=== PATIENT | female | born 1995 | race Caucasian/White ===

== ENCOUNTER 2022-07-08 15:52 | Outpatient (CLI) | payer BC, SELFPAY ==
[2022-07-08 18:26] LABS: Hepatitis B Surface Antigen* Negative (Negative)
[2022-07-08 18:36] LABS: HIV 1/2/P24 Combo Screen* Negative (Negative)
[2022-07-08 18:44] LABS: Hepatitis C Virus Antibody* Negative (Negative)
[2022-07-10 18:33] LABS: Rapid Plasma Reagin (RPR) Non Reactive (Non Reactive)
[2022-07-11 01:59] LABS: Rubella Antibody IgG 8.7 IU/mL; Varicella-Zoster Virus Ab, IgG 633.2 IV
[2022-07-12 09:25] LABS: Amphetamine Screen Urine Negative (Negative); Barbiturate Screen Urine Negative (Negative); Benzodiazepines Screen Urine Negative (Negative); Cannabinoid Screen Urine Negative (Negative); Cocaine Screen Urine Negative (Negative); Methadone Screen Urine Negative (Negative); Methamphetamines Screen Urine Negative (Negative); Opiate Screen Urine Negative (Negative); Oxycodone Screen Urine Negative (Negative); Phencyclidine Screen Urine Negative (Negative); Tricyclic Antidepressant Urine Negative (Negative)
== END 2022-07-08 15:53 | disposition home or self-care (01) ==
PROVIDERS: PCP Family Medicine; Visit Provider Advanced Practice Midwife
DX: Z34.91 Encounter for supervision of normal pregnancy, unspecified, first trimester (principal); Z3A.08 8 weeks gestation of pregnancy
CPT/HCPCS: 80306; 86592; 86703; 86762; 86787; 86803; 86850; 86900; 86901; 87086; 87340

== ENCOUNTER 2022-10-10 12:55 | Outpatient (CLI) | payer BC, SELFPAY ==
--- NOTE | 2022-10-10 13:00 | CRLHL7_ITS ---
For Patients: As a result of the Century Cures Act, medical imaging exams and procedure reports are released immediately into your electronic medical record. You may view this report before your referring provider. If you have questions, please contact your health care provider. INDICATION: Evaluate anatomy. COMPARISON: none TECHNIQUE: Real time grace scale imaging of the fetus was performed as well as color Doppler analysis of the umbilical vessels. FINDINGS: Sonographic imaging demonstrates a single living intrauterine gestation. Fetus demonstrates a regular cardiac rate of 138 beats per minute. Fetus has a variable position. The placenta lies posteriorly without evidence of placenta previa. The edge of the placenta is located 8.4 cm from the internal cervical os. Amniotic fluid volume appears normal. Single deepest vertical pocket: 4.6 cm. The cervix is closed and measures 4.6 cm in length. The composite ultrasound gestational age is calculated at 21 weeks 5 days with an estimated sonographic due date of 02/15/2023. The estimated weight is 457 grams which lies at the 44th %. The following biometric measurements were obtained: Biparietal diameter: 5.1 cm/21 weeks 4 days 37th% Head circumference: 19.3 cm/21 weeks 4 days 24th% Abdominal circumference: 16.9 cm/21 week 6 days 44th% Femur length: 3.7 cm/21 weeks 6 days 42nd% The HC/AC ratio measures: 1.14 range (1.06-1.24) On anatomic survey, there is a normal appearance of the cerebral ventricles, cavum septi pellucidi, cisterna magna and cerebellum. The nose, lips, and facial profile appear normal. The cervical, thoracic and lumbar spine are well visualized and appear normal. There is a normal four-chamber heart view and the left and right ventricular outflow tracts appear normal. The diaphragm and stomach appear normal. The kidneys and bladder also appear normal. There is a normal three-vessel cord and cord insertion site. The four extremities appear normal. IMPRESSION: Normal OB ultrasound exam with concordance of clinical and sonographic dating. No intrinsic abnormalities noted on anatomic survey. Dictated by Stu Crane MD @ 10/13/2022 6:41:02 AM (Electronically Signed)
== END 2022-10-10 12:56 | disposition home or self-care (01) ==
LOC: US 12:56
PROVIDERS: PCP Family Medicine; Visit Provider Advanced Practice Midwife
DX: Z34.92 Encounter for supervision of normal pregnancy, unspecified, second trimester (principal); Z3A.21 21 weeks gestation of pregnancy
CPT/HCPCS: 76805

== ENCOUNTER 2023-01-23 15:09 | Outpatient (CLI) | payer BC, SELFPAY ==
[2023-01-24 12:03] LABS: Strep B DNA Probe NEGATIVE (Negative)
[2023-01-25 11:52] LABS: Strep B Pen/Amox Allergy No
== END 2023-01-23 15:10 | disposition home or self-care (01) ==
PROVIDERS: PCP Family Medicine; Visit Provider Advanced Practice Midwife
DX: Z34.93 Encounter for supervision of normal pregnancy, unspecified, third trimester (principal); Z3A.36 36 weeks gestation of pregnancy
CPT/HCPCS: 87081; 87653

== ENCOUNTER 2023-01-30 12:59 | Outpatient (CLI) | payer BC, SELFPAY ==
--- NOTE | 2023-01-30 13:00 | CRLHL7_ITS ---
For Patients: As a result of the Century Cures Act, medical imaging exams and procedure reports are released immediately into your electronic medical record. You may view this report before your referring provider. If you have questions, please contact your health care provider. INDICATION: Third trimester scan, evaluate growth. COMPARISON: 10/10/2022 TECHNIQUE: Real time grace scale imaging of the fetus was performed. FINDINGS: Sonographic imaging demonstrates a single living intrauterine gestation. Fetus demonstrates a regular cardiac rate of 159 beats per minute. Fetus has a vertex position. The placenta lies posteriorly. Amniotic fluid volume appears normal and there is a single deepest vertical pocket: 5.2 cm. The estimated weight is 2852gm which lies at the 19th %. On the prior OB ultrasound exam dated 10/10/2022 the estimated weight was at the 44th%. The HC/AC ratio measures 0.98 range (0.93-1.08). BPD 11th percentile. HC less than 3rd percentile. AC 26th percentile. FL 12th percentile. IMPRESSION: Sonographic gestational age 35 weeks 6 days and sonographic due date 02/28/2023. Sonographic age 2 weeks behind the clinical age. Estimated weight 19 percentile. Abdominal circumference 26th percentile. Head circumference less than 30 percent. Dictated by Stu Crane MD @ 01/30/2023 3:04:10 PM (Electronically Signed)
== END 2023-01-30 13:00 | disposition home or self-care (01) ==
PROVIDERS: PCP Family Medicine; Visit Provider Advanced Practice Midwife
DX: O36.5930 Maternal care for other known or suspected poor fetal growth, third trimester, not applicable or unspecified (principal); Z3A.35 35 weeks gestation of pregnancy
CPT/HCPCS: 76816

== ENCOUNTER 2023-02-16 21:18 | Inpatient (IN) | payer BC, SELFPAY ==
[2023-02-16] VITALS (11 sets, daily range): BP systolic 128–131; BP diastolic 68–77; PULSE 74–104; O2SAT 88–100; BMI 25.9
[2023-02-16] MEDS: fentaNYL 100 MCG/2 ML inj IVP ×2 (21:48→22:50)
--- NOTE | 2023-02-16 22:03 | W.PM.LDBA ---
Subjective History of Present Illness Date Seen: 02/16/23 Narrative: Patient is being admitted to Labor and Delivery for labor and SROM. She is a 27 year old at 40.2 weeks gestation. Her full history and physical was dictated by Luci Rojas CNM on 01/30/23. Please see this for details. Jennie has been marissa most of the day on and off. They began to get more consistent this evening. Around 1830 they increased in intensity and shortly after she vomited. After that they decided to come in to be evaluated. On admission she was 2-3cm/80%/0. She was very uncomfortable and not coping well with contractions. She was intact and denied bleeding. With support she began coping better with contractions but was still having a lot of pain with contractions. She was recheck shortly after my arrival and found to be 4cm/80/0. she was seeking pain relief methods after this. Pain options of IV pain medications, hydrotherapy, position changes and an epidural were presented. She decided at that time to get an epidural. 1. 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 Penicillin rash as child Pt uncertain, going to check with mother but was on previous records Need sensitivity 3. THC use Stopped for - UDS negative at NOB. 4. Oral HSV Rx sent at [facility]B 5. Coccydynia injury in past Still occasionally has pain, never had imaging Offered PT, declines at this time 7. Rubella Non Immune Recommend MMR vaccine pp 8. A negative: Rhogam needed 28w: received PP: 9. Size <dates at 36.6 weeks. EFW 19% at 37.6wks. Specific Issues/Plans G1 Partner: JERRICA Doesn't want to know gender. H&P 01/30/23 by Ann Marie Rojas CNM Blood Type: A Negative Moss new last name 1. 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 Penicillin rash as child Pt uncertain, going to check with mother but was on previous records Need sensitivity 3. THC use Stopped for - UDS negative at NOB. 4. Oral HSV Rx sent at NOB 5. Coccydynia injury in past Still occasionally has pain, never had imaging Offered PT, declines at this time 7. Rubella Non Immune Recommend MMR vaccine pp 8. A negative: Rhogam needed 28w: received PP: 9. Size <dates at 36.6 weeks. EFW 19% at 37.6wks. COVID: declines 07/08/2022 Flu: declines 07/08/2022 TDAP: 01/06/2023 32wk Mental Health: 01/06/2023 OB - Problem Based A/P Additional Plan (1) Pain during labor: Status: Acute (2) : Status: Acute (3) Deaf: Problem details: Since ; both parents are Deaf. 5th generation deaf Status: Chronic Plan ASSESSMENT:? at 40.2 weeks gestation? GBS negative? Uncomplicated ? ? PLAN:? 1. Candidate for analgesia of choice. Requesting an epidural.? 2. Anticipate .? 3. Expectant management at this time.? 4. IV in place and continuous monitoring per policy. ? Delivery/Labor/Induction Plan Plan: expectant management OB Result Labs Blood Type: A (-) negative GBS Status: negative OB Exam Physical Exam Narrative: Psychiatric:? Alert and oriented x3? HEENT:? Normocephalic, atraumatic? Neck:? Supple without adenopathy or thyromegaly? Lungs:? Clear to auscultation bilaterally? Heart:? Regular rate and rhythm, no murmur, rub or gallop? Abdomen:? Soft, nontender, and gravid? Extremities:? No edema or erythema? Detailed Labor and Delivery Exam Patient Gravid: Yes Dilation (cm): 4 Effacement (%): 80 Cervix position: mid Consistency: medium Contraction Frequency: 2-4 min Tachysystole: No Fetus (Single) Station: 0 Amniotic Membrane Status: intact Heart Rate Baseline: 130 Monitor Accelerations: Present Monitor Decelerations: None Mcfp Variability: Moderate (6-25)
[2023-02-16] MEDS: LACTATED RINGERS 1000 ML 1,000 ML 625 ML IV (23:02)
[2023-02-16] MEDS: fentaNYL 250 MCG/5 ML inj 100 MCG EPIDURAL (23:40)
[2023-02-17] VITALS (29 sets, daily range): BP systolic 90–166; BP diastolic 51–83; PULSE 67–102; RESP 16–20; TEMP 36.5–36.7; O2SAT 97–100
[2023-02-17] MEDS: ROPIVACAINE 0.2% 100 ml 100 ML 12 MG EPIDURAL (00:01)
[2023-02-17] MEDS: LIDOCAINE 2% (PF) 5 ML VIAL EPIDURAL (00:01)
--- NOTE | 2023-02-17 00:05 | P.ANBPRC_ITS ---
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 Partner: JERRICA Wyattson), recently during ; [employer], [facility] [facility] 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[employer] Lives with: 2 house Pets: 1 dog, 1 cat Abuse:Partner present Special Diet: Denies Ok with a blood transfusion: yes Culture or confucianist beliefs: denies RISK FACTORS Exercise Times/wk: Walking, lifting weights, swimming 3x per week Depression/Anxiety: Denies STUART: 3 PHQ 9: 4 Seat Belt Use: Routinely Smoking: Denies past/present Alcohol/day: Denies while ; wine with dinner or socially Caffeine: Drinks coffee normally Drug Use: Denies past/present; Hx of THC previous socially last year Chicken Pox: Yes as a child MRSA: Denies Smoking Status: Never smoker Little interest or pleasure in doing things: not at all Feeling down, depressed, or hopeless: not at all Meds Home Medications and Allergies Home Medications Medication Instructions Recorded Confirmed Type prenat.vits,rosalia,exc-kury-gqjpj 1 tab PO QDAY 07/08/22 02/16/23 History ferrous sulfate 325 mg (65 mg 325 mg PO Q OTHER DAY 01/23/23 02/16/23 History iron) tablet (Feosol) Allergies Allergy/AdvReac Type Severity Reaction Status Date / Time No Known Drug Allergies Allergy Verified 02/14/23 13:50 Results Vital Signs Vital Signs: Last Vital Signs Pulse 99 02/17/23 00:03 BP 118/59 L 02/17/23 00:03 Pulse Ox 100 02/17/23 00:00 Weight: 67.404 kg Height: 161.29 cm Anesthesia Procedures Epidural Insertion Patient Location: OB Start Time: 23:00 Stop Time: 00:15 Start Date: 02/17/23 Stop Date: 02/17/23 Reason for Block: primary anesthetic Patient Position: sitting Performed By: Alexander Noriega Preanesthetic Checklist: IV checked, risks and benefits discussed, surgical consent, monitors and equipment checked, pre-op evaluation, timeout performed and anesthesia consent Prep: chlorhexidine gluconate Monitoring: blood pressure monitoring, cloth mercerizer operator, continuous pulse oximetry and heart rate Approach: midline Vertebral Space: lumbar (1-5) Needle Type: Tuohy needle Injection Technique: continuous catheter Needle gauge: 17 Needle Length (cm): 10 cm Needle Insertion Depth (cm): 6 Catheter Gauge: 19 Catheter Type: multi-orifice Catheter at skin depth (cm): 12 Test Dose Result: negative and lidocaine 1.5% with epinephrine 1 to 200,000 Events: other
[2023-02-17] MEDS: LACTATED RINGERS 1000 ML 1,000 ML 125 ML IV (00:27)
[2023-02-17] MEDS: OXYTOCIN 30 unit/500 ML in NS 30 UNIT/500 ML BAG 225 UNIT IVPB (01:15)
--- NOTE | 2023-02-17 01:47 | W.PM.OBVAGDE ---
OB Procedure Vag Delivery Mother Details Mother Details: The patient is a 27 year-old, 1, Para 0, admitted on 02/16/23 at 40.3 Days gestation. She was admitted for labor and progressed normally. AROM noted at 0004 with clear fluid. after AROM at 0008 a decel lasting 2 minutes down to the 80's was noted. It resolved with position changes. She was checked and found to be 6cm at that time. Baseline returned to 130's and ramained there with accels until pushing. With pushing baseline was 130's +accels, and some variable decels to the 90's with good return to baseline and moderate variability. She rapidly progressed to complete with increasing pressure. She pushed well in on her side and her back. Patient was complete at 0046 and pushing at 0052. of a viable male at 0112 on her back after mostly pushing on her side. Vertex delivered OA. No nuchal cord or shoulder. Body delivered easily and without incident. Infant passed to mothers abdomen with a vigorous cry. Cord was clamped and cut at > 5 minutes. APGARS were 9 at one minute and 9 at five minutes respectively. Mouth was bulb suctioned. Intact placenta with a 3 vessel cord delivered spontaneously at 0127. Fundus firm. Bilateral labial lacerations identified that were shallow and hemostatic so were not repaired. QBL 100 cc. Mother and baby stable; mother plans to breastfeed. Infant weight pending.? : 1 Para: 1 Weeks Gestation: 40.3 Admission Date: 02/16/23 Additional Details Amniotic Membrane Status: intact Amniotic Membrane Rupture Date: 02/17/23 Amniotic Membrane Rupture Time: 00:04 Amniotic Membrane Fluid Description: Clear Analgesia/Anesthesia Type: Epidural Waterbirth: No Pitcoin: Yes ( only) Delivery augmentation: rupture of membranes Labor Onset: 18:00 Complete: 00:46 Pushin:52 Heart: heart tones during second stage were [] Delivery Details Delivery Date: 02/17/23 Delivery Time: 01:12 Route of delivery: Infant Gender: Male Infant Viability: Alive; Heart Rate Present Position at Delivery: OA 1 Minute Interval Total Score: 9 5 Minute Interval Total Score: 9 Additional Details Shoulder Dystocia: No Placenta Delivery Time: 01:27 Placental Delivery Description: Spontaneous Procedure Done: Global Blood Loss: 100 Laceration: Labial (shallow and hemostatic ) Episiotomy Description: None Blood Loss Measurement Type: QBL Bakri Used: No Sponge/Need Count Correct: Yes Cord Vessel Description: 3 Vessels Event Summary Status: Mother and were stable after delivery. Disposition: floor
[2023-02-17] MEDS: DOCUSATE SODIUM 100 MG CAPSULE PO (11:07)
[2023-02-17] MEDS: IBUPROFEN 600 MG TABLET PO ×2 (11:08→19:54)
[2023-02-18 01:30] VITALS: BP 92/54; PULSE 91; RESP 18; TEMP 37.1; O2SAT 97
[2023-02-18 04:59] LABS: Hemoglobin* 11.4 gm/dL (12.0-16.0)
--- NOTE | 2023-02-18 07:53 | PM.OBDSVD1 ---
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 5th generation deaf Exam Narrative: Exam Narrative: VSS, afebrile GENERAL APPEARANCE: ?normal affect, alert, no distress MOOD: ?appropriate HEENT: normocephalic, neck supple, full ROM CHEST: ?Symmetrical chest wall movement. ?Normal respiratory effort. ?Clear to auscultation HEART: ?regular rate and rhythm ABDOMEN: ?soft, non-tender. Uterine fundus is firm, 4 below Umbilicus, Midline and is appropriate for the stage of recovery. ?Bowel sounds present. PERINEUM: ?mild edema of the perineum, there is a labial laceration that is healing well. EXTREMITIES: ?normal and no edema Const: Vital Signs, click to edit/add: Vital Signs - 24 hr 02/17/23 09:45 02/17/23 10:09 02/17/23 10:09 Temperature 98.0 F Pulse Rate 75 Pulse Rate [Pulse Oximeter] 78 Respiratory Rate 16 Blood Pressure 90/51 L Blood Pressure [Ri ght Arm] 90/51 L Pulse Oximetry 98 Oxygen Delivery Me thod Room Air 02/17/23 12:45 02/17/23 12:47 02/17/23 12:47 Temperature Pulse Rate 72 Pulse Rate [Pulse Oximeter] 67 Respiratory Rate 16 Blood Pressure 149/67 H Blood Pressure [Ri ght Arm] 125/57 L Pulse Oximetry 97 Oxygen Delivery Me thod Room Air 02/17/23 12:48 02/17/23 12:51 02/17/23 12:51 Temperature Pulse Rate 74 Pulse Rate [Pulse Oximeter] Respiratory Rate Blood Pressure 124/57 L Blood Pressure [Ri ght Arm] Pulse Oximetry 97 Oxygen Delivery Me thod 02/17/23 16:41 02/17/23 19:59 02/18/23 01:30 Temperature 97.7 F 98.0 F 98.8 F Pulse Rate Pulse Rate [Pulse Oximeter] 70 78 91 Respiratory Rate 16 20 18 Blood Pressure Blood Pressure [Ri ght Arm] 124/77 106/70 92/54 L Pulse Oximetry 98 99 97 Oxygen Delivery Me thod Room Air Room Air Room Air Documenting provider has reviewed patient's vital signs: yes OB - DS: Summary Hospital Course Hospital Course: Jennie is a 27 y.o. G 1 P 1 who was admitted to [facility] for labor. ?She had an uncomplicated NVD The patient feels well. ?The pain is well controlled with current medications. ?She has no new complaints. ?She is breast feeding and reports things are going well.? the patient has done well.? Vitals have been stable.? She has remained afebrile.? Has a good appetite, is tolerating a general diet. ?She is voiding without difficulty.? She is passing gas and has had a bowel movement.? She is ambulating and denies any dizziness.? Has Small amount of rubra lochia. She is not planning on prevention, but does state she wants to wait before conceiving again. Problems: none plan: Discharge home with baby. Follow up in 2 weeks and 6 weeks. , may follow up with if needed Peripartum Data delivery method: Vaginal Laceration description: Labial (not repaired) complications: none [place] Infant Gender: Male Infant Discharge Plan: Home Status at Discharge Functional status at discharge: independent ambulation Overall status at discharge: patient is progressing back to baseline Time Spent with Patient Time attestation: Total time spent providing and/or coordinating discharge services: Time spent: Less than 30 minutes Discharge Plan Discharge Disposition: Home, Self-Care Date of Admission: 02/16/23 21:18 Attending Provider on Discharge: Venessa Medrano Primary Care Provider: Moises Scherer Condition: Stable Anticipated Discharge Date/Time: 02/18/23 09:00 Discharge Medications: New docusate sodium 100 mg Capsule 100 mg PO BID PRNQty: 100 0RF Rx Instructions: Take 1 cap 1-2 times a day as needed for constipation ibuprofen 600 mg Tablet 600 mg PO Q6H PRNQty: 60 0RF Continued prenat.vits,rosalia,ugm-nwuf-tutqw Tablet 1 tab PO QDAY valacyclovir [Valtrex] 500 mg tablet 500 mg PO BID PRN (Reason: oral cold sore) Qty: 9 2RF Rx Instructions: Take 1 tab (500 mg) twice daily for 3 days. Start at onset of symptoms. Discontinued ferrous sulfate [Feosol] 325 mg (65 mg iron) tablet 325 mg PO Q OTHER DAY Discharge Orders: Discharge Order (Routine); Ordered 02/18/23 Ordered By: Venessa Medrano Patient Education: OB Over the Counter Medication Information, OB Vaginal/Breast Feeding Activity Level: Activity as Tolerated Discharge Diet: Regular Follow Up Appointments: Moises Scherer MD [Primary Care Provider] - Forms: [facility] Info Instructions
[2023-02-18 08:30] VITALS: BP 90/56; PULSE 90; RESP 16; TEMP 36.9; O2SAT 97
== END 2023-02-18 09:15 | disposition home or self-care (01) | DRG 560 ==
LOC: OB OUT 02-17 00:19 → OB 02-17 00:19
PROVIDERS: Admitting Provider Advanced Practice Midwife; Visit Provider Advanced Practice Midwife
DX: O80 Encounter for full-term uncomplicated delivery (principal); Z3A.40 40 weeks gestation of pregnancy; H91.3 Deaf nonspeaking, not elsewhere classified; Z37.0 Single live birth
CPT/HCPCS: 01967; 36415; 85018; A9270; J2371; J2795; J3010; J7120

== ENCOUNTER 2024-07-30 12:05 | Outpatient (CLI) | payer BC, SELFPAY | END 2024-07-30 12:06 | disposition home or self-care (01) | LOC: US 12:09 | PROVIDERS: PCP Family Medicine; Visit Provider Advanced Practice Midwife | DX: Z34.91 Encounter for supervision of normal pregnancy, unspecified, first trimester (principal); O20.9 Hemorrhage in early pregnancy, unspecified; Z3A.08 8 weeks gestation of pregnancy | CPT/HCPCS: 76817; 87086 ==

== ENCOUNTER 2024-09-02 15:31 | Outpatient (CLI) | payer BC, SELFPAY | END 2024-09-02 15:32 | disposition home or self-care (01) | LOC: NFLDREF 09-03 03:55 | PROVIDERS: PCP Family Medicine; Referring Provider Family Medicine; Visit Provider Advanced Practice Midwife | DX: Z34.91 Encounter for supervision of normal pregnancy, unspecified, first trimester (principal); Z3A.12 12 weeks gestation of pregnancy | CPT/HCPCS: 83020; 83021; 85660; 86592; 86703; 86704; 86706; 86762; 86787; 86803; 86850; 86900; 86901; 87340 ==

== ENCOUNTER 2024-10-24 13:54 | Outpatient (CLI) | payer BC, SELFPAY ==
--- NOTE | 2024-10-24 14:00 | CRLHL7_ITS ---
For Patients: As a result of the Century Cures Act, medical imaging exams and procedure reports are released immediately into your electronic medical record. You may view this report before your referring provider. If you have questions, please contact your health care provider. OB ULTRASOUND SURVEY LMP: 06/05/2024. ROSEANNA by LMP: 03/12/2025. GA: 20 w, 1 d. INDICATION: anatomic survey. TECHNIQUE: Real time grace scale imaging of the fetus was performed. Transabdominal. position: Multiple positions. Cervix: Visualized. Technique: Transabdominal. Length of closed cervix: 3.8 cm. Placenta/cord: Posterior. Placenta tip to internal OS: 4.8 cm. Umbilical Cord: 3-vessel cord. Placenta insertion: Marginal (within 2 cm of placenta edge). Amniotic Fluid: 3.5 cm SDP (greater than/equal to: 2- less than 8 cm). SURVEY: Observed Structures. Calvarium/Spine: Cerebellum: 21.5 cm, 21 w 4 d. Cisterna Magna: 4.8 mm. Nuchal Fold: 3.6 mm. Lateral Ventricle: 5.8 mm. CSP: Yes. Midline Falx: Yes. Choroid Plexus: Yes. Spine: Yes. Abdomen: Stomach: Yes. Abd Cord Insertion: Yes. Urinary Bladder: Yes. Kidneys: Yes. Diaphragm: Yes. Face: Nose/lips: Yes. Orbital view: Yes. Profile: Yes. Limbs: Upper Extremities: Yes. Lower Extremities: Yes. Hands: Yes. Feet: Yes. Vascular: 4-Chamber Heart: Yes. LVOT: Yes. RVOT: Yes. 3VV: Yes. 3VTV: Yes. BPD: 4.5 cm. 19 w, 3 d, 22.2 percent. HC: 16.9 cm. 19 w, 4 d, 17.6 percent. AC: 16.2 cm. 21 w, 2 d, 78.7 percent. FL: 3.1 cm. 19 w, 5 d, 26.1 percent. FL/AC ratio: 19.3 percent. HC/AC ratio: 1.1. heart rate: 138 bpm. age by this US: 20 w, 2 d. ROSEANNA by this US: 03/11/2025. EFW: 350.7 g. Weight: 0 lbs, 12 oz. Percentile by ROSEANNA: 59.7 percent. IMPRESSION: 1. Concordance of clinical and sonographic dating. 2. Normal anatomic survey. 3. Marginal placental cord insertion located 9 mm from the placental edge. Stu Crane M.D. Diagnostic Radiologist [email or web address] SP/Dictated by: Stu Crane MD @ 10/24/2024 3:27:00 PM (Electronically Signed)
== END 2024-10-24 13:55 | disposition home or self-care (01) ==
LOC: US 13:54
PROVIDERS: PCP Family Medicine; Visit Provider Advanced Practice Midwife
DX: Z34.92 Encounter for supervision of normal pregnancy, unspecified, second trimester (principal); O43.192 Other malformation of placenta, second trimester; Z3A.20 20 weeks gestation of pregnancy
CPT/HCPCS: 76805

== ENCOUNTER 2024-12-17 10:37 | Outpatient (CLI) | payer BC, SELFPAY ==
--- NOTE | 2024-12-17 10:45 | CRLHL7_ITS ---
For Patients: As a result of the Century Cures Act, medical imaging exams and procedure reports are released immediately into your electronic medical record. You may view this report before your referring provider. If you have questions, please contact your health care provider. OB ULTRASOUND ROSEANNA by LMP or US: 03/10/2025. GA: 27 w, 6 d. Single. Comparison: 10/24/2024. INDICATION: Marginal cord insertion. TECHNIQUE: Real time grayscale imaging of the fetus was performed. Transabdominal. CERVIX: Not visualized. POSITIONING: Breech. AMNIOTIC FLUID: 7.1 cm. SDP (N: greater than 2 x 1 cm) PLACENTA: Technique: Transabdominal. PLACENTA POSITION: Posterior, marginal CI. DOPPLER: heart rate: 142 bpm. BIOMETRY: BPD: 7.1 cm. 28 w, 2 d, 54 percent. HC: 26.0 cm. 28 w, 2 d, 31 percent. AC: 24.7 cm. 29 w, 0 d, 76 percent. FL: 5.0 cm. 27 w, 0 d, 15 percent. FL/AC ratio: 20.38 percent. HC/AC ratio: 1.05. EFW: 1193 g. Weight: 2 lbs, 10 oz. age by this US: 28 w, 1 d. ROSEANNA by this US: 03/10/2025. Percentile by ROSEANNA: 51 percent. IMPRESSION: 1. Sonographic gestational age 28 weeks 1 day and sonographic due date 03/10/2025. Good correlation with dates. Normal intimal growth. 2. Estimated weight 51st percentile. Abdominal circumference 76th percentile. Stu Crane M.D. Diagnostic Radiologist [email or web address] MORENITA/[email or web address] hernandez/Dictated by: Stu Crane MD @ 12/17/2024 11:41:00 AM (Electronically Signed)
== END 2024-12-17 10:38 | disposition home or self-care (01) ==
LOC: US 10:37
PROVIDERS: PCP Family Medicine; Visit Provider Physician Assistant
DX: O43.192 Other malformation of placenta, second trimester (principal); Z3A.27 27 weeks gestation of pregnancy
CPT/HCPCS: 76816

== ENCOUNTER 2024-12-17 12:48 | Outpatient (CLI) | payer BC, SELFPAY | END 2024-12-17 12:49 | disposition home or self-care (01) | LOC: NFLDREF 12:48 | PROVIDERS: PCP Family Medicine; Visit Provider Advanced Practice Midwife | DX: O26.892 Other specified pregnancy related conditions, second trimester (principal); Z67.91 Unspecified blood type, Rh negative; Z3A.27 27 weeks gestation of pregnancy | CPT/HCPCS: 86592; 86850; J2791 ==

== ENCOUNTER 2025-01-29 12:08 | Outpatient (CLI) | payer BC, SELFPAY ==
--- NOTE | 2025-01-29 12:15 | CRLHL7_ITS ---
For Patients: As a result of the Century Cures Act, medical imaging exams and procedure reports are released immediately into your electronic medical record. You may view this report before your referring provider. If you have questions, please contact your health care provider. OB ULTRASOUND FOLLOW-UP GROWTH LMP: 06/05/2024. ROSEANNA by LMP: 03/12/2025. GA: 34 w, 0 d. Single. INDICATION: Other malformation of placenta. TECHNIQUE: Real time grace scale imaging of the fetus was performed. Transabdominal imaging performed. CERVIX: Not visualized. POSITIONING: Vertex. AMNIOTIC FLUID: 7.2 cm SDP (N: greater than 2 x 1 cm) PLACENTA: Technique: Transabdominal. PLACENTA POSITION: Posterior. DOPPLER: heart rate: 135 bpm. BIOMETRY: BPD: 8.4 cm. 33 w, 6 d, 43 percent. HC: 29.7 cm. 32 w, 6 d, 3 percent. AC: 30.4 cm. 34 w, 2 d, 63 percent. FL: 6.4 cm. 33 w, 0 d, 18 percent. FL/AC ratio: 21.09 percent. HC/AC ratio: 0.98. EFW: 2269 g. Weight: 5 lbs, 0 oz. age by this US: 33 w, 4 d. ROSEANNA by this US: 03/15/2025. Percentile by ROSEANNA: 36.0 percent. IMPRESSION: 1. Sonographic gestational age 33 weeks 4 days and sonographic due date 03/15/2025. Good correlate with dates. Normal interval growth. 2. Estimated weight 36th percentile. Abdominal circumference 63rd percentile. Head circumference 3rd percentile. Stu Crane M.D. Diagnostic Radiologist [email or web address] SP/Dictated by: Stu Crane MD @ 02/02/2025 8:43:00 AM (Electronically Signed)
== END 2025-01-29 12:09 | disposition home or self-care (01) ==
LOC: US 12:08
PROVIDERS: PCP Family Medicine; Visit Provider Advanced Practice Midwife
DX: O43.193 Other malformation of placenta, third trimester (principal); Z3A.33 33 weeks gestation of pregnancy
CPT/HCPCS: 76816; 82728

== ENCOUNTER 2025-02-12 14:58 | Outpatient (CLI) | payer BC, SELFPAY ==
[2025-02-13 14:06] LABS: Strep B DNA Probe Negative (Negative)
[2025-02-13 14:29] LABS: Strep B Susceptibility Needed? No
== END 2025-02-12 14:59 | disposition home or self-care (01) ==
LOC: NFLDREF 14:58
PROVIDERS: PCP Family Medicine; Visit Provider Advanced Practice Midwife
DX: Z34.93 Encounter for supervision of normal pregnancy, unspecified, third trimester (principal); Z3A.36 36 weeks gestation of pregnancy
CPT/HCPCS: 87081; 87653

== ENCOUNTER 2025-03-15 21:51 | Inpatient (IN) | payer BC, SELFPAY ==
[2025-03-15] VITALS (17 sets, daily range): BP systolic 101–143; BP diastolic 53–86; PULSE 67–129; RESP 18; TEMP 36.4–36.9; O2SAT 99
[2025-03-15 21:57] LABS: Hematocrit 34.0 % (33.0-51.0); Hemoglobin* 11.3 gm/dL (12.0-16.0); Immature Granulocytes Pct Auto 0.4 %; Mean Corpuscular HGB Conc 33 gm/dL (32-36); Mean Corpuscular Hemoglobin 29 pg (26-34); Mean Corpuscular Volume 87 fL (80-100); RDW Coefficient of Variation % 12.7 % (11.5-15.5); Red Blood Count 3.93 m/uL (4.00-5.20); White Blood Count* 11.12 K/uL (4.50-11.00)
[2025-03-15 21:58] LABS: Immature Granulocytes Abs Auto 0.00 K/uL (0.00-0.30); Lymphocytes Absolute Auto 1.20 K/uL (0.90-2.90); Slide Review Reflex No
--- NOTE | 2025-03-15 22:18 | P.LDBA_ITS ---
Subjective History of Present Illness Narrative: Jennie is a 29 yo at 40 3/7 weeks gestation being admitted to Labor and Delivery for spontaneous onset of labor. She reports contractions started earlier today. She is supported in labor by her , JERRICA. An translator/interpreter arrived while getting her admitted. Her full history and physical was dictated by MARYANN Villalpando on 02/20/2025. Please see this for details. Specific Issues/Plans : JERRICA, Son Robinson H&P 02/20/25 by Ann Marie Rojas CNM and RAY Bates #Marginal cord insertion (<1 cm from placental edge) ? Growth US at 28 (51%) and 34 weeks?(36%) ? Delivery recommended: Early term delivery not indicated? #Breech at 36 weeks - Confirmed cephalic on 02/14/2025 Check presentation on admission to L&D # A negative Rhogam 28w (given) and PP. 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 Allergy referral placed but recommended testing PP. # Hx oral HSV # Coccydynia injury in past-not an issue with last delivery OB - Problem Based A/P Additional Plan (1) Pain during labor: Status: Acute (2) Rh negative status during : Status: Acute (3) Marginal insertion of umbilical cord: Status: Acute (4) 40 weeks gestation of : Status: Acute Plan ASSESSMENT:? 29 yo at 40 3/7 weeks gestation? complicated by:?marginal cord insertion, breech at 36 weeks now RESOLVED, A neg, Anemia, Deaf, hx oral HSV, hx of coccydynia injury Labor type: Spontaneous, Active labor? Category 1 FHR pattern.?? Labor complicated by: none GBS negative? ? PLAN:? 1. Routine intrapartum cares as ordered. Continue with expectant management? 2. Monitoring per policy, continuous with epidural 3. Requested epidural, IV placed and labs drawn. Candidate for analgesia of choice, ITN may be needed due to patient labor status. 4. Patient encouraged to reposition and ambulate to promote physiologic labor and .? 5. Anticipate ? OB Exam Physical Exam Vital signs: Pulse BP 71 122/86 03/15/25 22:16 03/15/25 22:16 Narrative: Vitals Reviewed Constitutional:? Alert and oriented x3 HEENT:? Normocephalic, atraumatic Neck:? Supple Lungs:? Clear to auscultation bilaterally Heart:? Regular rate and rhythm, no murmur, rub or gallop Abdomen:? Soft, nontender, and gravid. Vertex by Taras's, confirmed with bedside US. Extremities:? No edema or erythema Cervix: 5-6 cm/90%/0 station/vertex NST: 145 bpm/moderate variability/no accelerations/late decelerations/contractions every 2-3 minutes Detailed Labor and Delivery Exam Patient Gravid: yes
--- NOTE | 2025-03-15 22:27 | PM.ANBPRC ---
[facility] Medical History (Updated 02/20/25 @ 16:05 by Lesly Castellon) Recurrent oral herpes simplex ?B00.2 - Herpesviral gingivostomatitis and pharyngotonsillitis (ICD-10) Lactating mother ?Z39.1 - Encounter for care and examination of lactating mother (ICD-10) Marijuana abuse ?F12.10 - Cannabis abuse, uncomplicated (ICD-10) NVD (normal vaginal delivery) ?O80 - Encounter for full-term uncomplicated delivery (ICD-10) Broken arm ?S42.309A - Unspecified fracture of shaft of humerus, unspecified arm, initial encounter for closed fracture (ICD-10) Coccydynia (2019) ?M53.3 - Sacrococcygeal disorders, not elsewhere classified (ICD-10) Surgical History [place] teeth extracted ?K08.409 - Partial loss of teeth, unspecified cause, unspecified class (ICD-10) Family History Unknown Deafness Social History Narrative: SOCIAL Education: Bachelor's degree, in science 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, 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 Partner: JERRICA (Walker), recently during ; Interpreting for the [facility] Lives with: Urban Pets: 1 dog, 1 cat Abuse: Denies past or present Special Diet: Denies Ok with a blood transfusion: yes Culture or restorationism beliefs: denies RISK FACTORS Exercise Times/wk: Walking, lifting weights, swimming Depression/Anxiety: Denies STUART: 3 PHQ 9: 4 Seat Belt Use: Routinely Smoking: Denies past/present Alcohol/day: Denies while ; wine with dinner or socially Caffeine: Drinks coffee occasionally Drug Use: Denies present; Hx of THC prior to first Chicken Pox: Yes as a child MRSA: Denies What is your current living situation?: I presently have a place to live Problems where you live: no known problems and declined to answer In the past 12 months, utilities in danger of being shut off: no In past 12 months, lack of transportation kept you from medical appts, meetings, work, or getting things needed for daily living: no In the past 12 mos, have been you worried that your food would run out before you had money to buy more?: never true In the past 12 mos, the food you bought just didn't last and you didn't have money to buy more?: never true Smoking Status: Never smoker How often does anyone, including family, friends and others, physically hurt you: never How often does anyone, including family, friends and others, insult or talk down to you: never How often does anyone, including family, friends and others, threaten you with harm: never How often does anyone, including family, friends and others, scream or curse at you: never Meds Home Medications and Allergies Home Medications ?Medication ?Instructions ?Recorded ?Confirmed ?Type prenat.vits,rosalia,[id number] 1 tab PO QDAY 07/08/22 03/12/25 History Allergies Allergy/AdvReac Type Severity Reaction Status Date / Time No Known Drug Allergies Allergy Verified 03/12/25 10:52 Results Labs Labs: Laboratory Results - last 24 hr 03/15/25 21:50 WBC 11.12 H RBC 3.93 L Hgb 11.3 L Hct 34.0 MCV 87 MCH 29 MCHC 33 RDW Coeff of Ena 12.7 Plt Count 187 Neut % (Auto) 83.0 H Lymph % (Auto) 11.2 L [place] % (Auto) 4.9 Eos % (Auto) 0.2 Baso % (Auto) 0.3 Neut # (Auto) 9.20 H Lymph # (Auto) 1.20 [place] # (Auto) 0.50 Eos # (Auto) 0.00 Baso # (Auto) 0.00 Abs Immat Gran (auto) 0.00 Imm/Tot Granulo (auto) 0.4 Vital Signs Vital Signs: Last Vital Signs Pulse 71 03/15/25 22:16 BP 122/86 03/15/25 22:16 Pulse Ox 99 03/15/25 22:22 Anesthesia Procedures Intrathecal Patient Location: OB Start Time: 22:00 Stop Time: 22:27 Start Date: 03/15/25 Stop Date: 03/15/25 Reason for Block: procedure for pain Patient Position: sitting Performed By: Vinny Neumann Preanesthetic Checklist: IV checked, risks and benefits discussed, monitors and equipment checked, pre-op evaluation, timeout performed and anesthesia consent Prep: chlorhexidine gluconate Monitoring: blood pressure monitoring, continuous pulse oximetry and heart rate Approach: midline Vertebral Space: lumbar (1-5) Needle Type: Sprotte Injection Technique: single-shot Needle gauge: 25 Needle Length (cm): 10 cm
[2025-03-15] MEDS: PHENYLEPHRINE 100 MCG/ML SYRINGE IVP (22:44)
[2025-03-15] MEDS: LACTATED RINGERS 1000 ML 1,000 ML 125 ML IV (22:45)
[2025-03-15] MEDS: OXYTOCIN 30 unit/500 ML in NS 30 UNIT/500 ML BAG 300 UNIT IVPB (23:55)
[2025-03-16] VITALS (18 sets, daily range): BP systolic 93–155; BP diastolic 54–88; PULSE 52–85; RESP 16–18; TEMP 36.6–37.1; O2SAT 95–97; BMI 26.4
--- NOTE | 2025-03-16 00:15 | W.PM.OBVAGDE ---
OB Procedure Vag Delivery Mother Details Mother Details: The patient is a 29 year-old, 2, now Para 2, admitted on 03/15/25 at 40.4 gestation for spontaneous onset of labor. : 2 Para: 2 Weeks Gestation: 40.4 Admission Date: 03/15/25 Additional Details Amniotic Membrane Status: AROM Amniotic Membrane Rupture Date: 03/15/25 Amniotic Membrane Rupture Time: 22:28 Amniotic Membrane Fluid Description: Clear Analgesia/Anesthesia Type: Intrathecal Waterbirth: No Pitcoin: Yes ([facility] only) Intrapartal Events: None Labor Onset: 22:13 Complete: 23:25 Pushin:28 Heart: heart tones during second stage were category II with moderate variability and intermittent decelerations with pushing that returned to baseline between contractions. Delivery Details Delivery Date: 03/15/25 Delivery Time: 23:47 Route of delivery: Infant Gender: Female Viability: Alive; Heart Rate Present Position at Delivery: OA Delivery Details: Patient was admitted for spontaneous onset of labor and progressed normally. She received an ITN for pain analgesic and was comfortable. AROM of clear fluid at 2228. Patient was complete at 2325 and pushing at 2328. Patient sister, who is a medical student, asked about assisting in the delivery. Per patient consent, she assisted in hand over hand delivery. of a viable female at 2347 in left tilt on the bed. Vertex delivered OA. No nuchal cord or shoulder. Body delivered easily and without incident. passed to mothers abdomen with a vigorous cry. Cord was clamped and cut at > 5 minutes. APGARS were 8 at one minute and 8 at five minutes respectively. Mouth was bulb suctioned. Intant was briefly taken to the warmer after cord was clamped and cut due to concern of color but returned after brief assessment by RN on the warmer. Intact placenta with a 3 vessel cord delivered spontaneously at 2355. Fundus firm. Intact perineum. Due to no graduated measurement on delivery drape, EBL of 150 cc. Mother and baby stable; mother plans to breastfeed. weight pending. 1 Minute Interval Total Score: 8 5 Minute Interval Total Score: 8 Additional Details Shoulder Dystocia: No Placenta Delivery Time: 23:55 Placental Delivery Description: Spontaneous Delivery repair: Vicryl Procedure Done: Global Blood Loss: 150 Laceration: None Episiotomy Description: Midline Blood Loss Measurement Type: EBL Bakri Used: No Cord Vessel Description: 3 Vessels Event Summary Status: Mother and were stable after delivery. Disposition: floor
[2025-03-16] MEDS: ACETAMINOPHEN 500 MG TABLET 1000 MG PO ×3 (04:21→18:08)
[2025-03-16] MEDS: IBUPROFEN 600 MG TABLET PO ×4 (09:15→21:18)
[2025-03-16] MEDS: DOCUSATE SODIUM 100 MG CAPSULE PO (09:15)
--- NOTE | 2025-03-16 10:55 | P.OBPN_ITS ---
OB - PN:Subj Subjective Date Seen: 03/16/25 Narrative: Jennie is a 29 y.o. G 2 P 2 who was admitted to L & D for spontaneous onset of labor. ?She had a NVD that was uncomplicated. The patient feels well. ?The pain is well controlled with current medications. ?She has no new complaints. ?She is breast feeding and reports things are going well. the patient has done well.? Vitals have been stable.? She has remained afebrile.? Has a good appetite, is tolerating a general diet. ?She is voiding without difficulty.? She is passing gas and has not had a bowel movement.? She is ambulating and denies any dizziness.? Has small amount of rubra lochia. Problems: none OB - PN: Obj Exam Physical Exam: Vital signs: Temp Pulse Resp BP Pulse Ox O2 Del Method 98.3 F 75 16 94/67 97 Room Air 03/16/25 09:04 03/16/25 09:04 03/16/25 09:04 03/16/25 09:04 03/16/25 09:04 03/16/25 09:04 Narrative: GENERAL APPEARANCE:? normal affect, alert, no distress MOOD:? appropriate CHEST:? clear to auscultation HEART:? regular rate and rhythm ABDOMEN:? soft, non-tender the uterine fundus is no cm At Umbilicus, Midline and is appropriate for the stage of recovery. PERINEUM:? mild edema of the perineum. EXTREMITIES:? normal and no edema OB - PN: Obj Data Labs Labs: Laboratory Results - last 24 hr 03/15/25 21:50 WBC 11.12 H RBC 3.93 L Hgb 11.3 L Hct 34.0 MCV 87 MCH 29 MCHC 33 RDW Coeff of Ena 12.7 Plt Count 187 Neut % (Auto) 83.0 H Lymph % (Auto) 11.2 L [place] % (Auto) 4.9 Eos % (Auto) 0.2 Baso % (Auto) 0.3 Neut # (Auto) 9.20 H Lymph # (Auto) 1.20 [place] # (Auto) 0.50 Eos # (Auto) 0.00 Baso # (Auto) 0.00 Abs Immat Gran (auto) 0.00 Imm/Tot Granulo (auto) 0.4 Blood Type A Negative Antibody Screen POSITIVE OB - PN: A/P Delivery Assessment and Plan (1) Rh negative status during : Status: Acute (2) care and examination immediately after delivery: Status: Acute (3) Deaf: Problem details: Since ; both parents are Deaf. 5th generation deaf Status: Chronic Plan day: 1 Plan: routine care Comments: Anticipate discharge tomorrow. , may see if needed? Hgb 11.3. ?? For pain control of perineum, breast and pelvic pain, take 600 mg Ibuprofen every 6 hours as needed by mouth or 1000 mg acetaminophen (Tylenol) every 6 hours by mouth as needed. You can alternate these so you are taking something every 3 hours as needed. A heating pad can also be used for your abdomen or breasts. You may also take docusate sodium up to twice daily to soften your stools and help to prevent constipation. You may wean off of it when your stools return to normal.?
[2025-03-17] MEDS: IBUPROFEN 600 MG TABLET PO (03:30)
[2025-03-17 04:10] VITALS: BP 105/72; PULSE 72; RESP 16; TEMP 36.7; O2SAT 99
--- NOTE | 2025-03-17 07:21 | PM.OBDSVD1 ---
DS: Providers Provider Date Seen: 03/17/25 Date of admission: 03/15/25 21:51 Primary care physician: Moises Scherer MD Admitting Clinician: Karyn Hill CNM Consults: 03/15/25 21:46 Consult to Revenue Accounting Manager [CONS] Routine Comment: Reason for Consult:: Admissions Clerk Needed Attending Physician on discharge: Karyn Hill CNM Date of Discharge: 03/17/25 DS: Diagnosis Discharge Diagnosis (1) care and examination immediately after delivery: Status: Acute (2) Lactating mother: Status: Acute (3) NVD (normal vaginal delivery): Status: Acute Exam Narrative: Exam Narrative: VSS, afebrile GENERAL APPEARANCE: ?normal affect, alert, no distress MOOD: ?appropriate HEENT: normocephalic, neck supple, full ROM CHEST: ?Symmetrical chest wall movement. ?Normal respiratory effort. ?Clear to auscultation HEART: ?regular rate and rhythm ABDOMEN: ?soft, non-tender. Uterine fundus is firm, at Umbilicus, Midline and is appropriate for the stage of recovery. ?Bowel sounds present. PERINEUM: ?mild edema of the perineum, intact. EXTREMITIES: ?normal and trace edema Const: Vital Signs, click to edit/add: Vital Signs - 24 hr 03/16/25 09:04 03/16/25 12:55 03/16/25 18:00 Temperature 98.3 F 98.4 F 98.1 F Pulse Rate [Right Pulse Oximeter] 75 62 59 L Respiratory Rate 16 16 16 Blood Pressure [Ri ght Arm] 94/67 105/71 105/66 Pulse Oximetry 97 95 97 Oxygen Delivery Me thod Room Air Room Air Room Air 03/16/25 21:15 03/17/25 04:10 Temperature 97.9 F 98.1 F Pulse Rate [Right Pulse Oximeter] 56 L 72 Respiratory Rate 16 16 Blood Pressure [Ri ght Arm] 117/74 105/72 Pulse Oximetry 96 99 Oxygen Delivery Me thod Room Air Room Air Documenting provider has reviewed patient's vital signs: yes OB - DS: Summary Hospital Course Hospital Course: Jennie is a 29 y.o. who was admitted to L & D for labor. ?She had an uncomplicated NVD.?The patient feels well. ?The pain is well controlled with current medications. ?She has no new complaints. ?She is breast feeding and reports things are going well.? the patient has done well.? Vitals have been stable.? She has remained afebrile.? Has a good appetite, is tolerating a general diet. ?She is voiding without difficulty.? She is passing gas and has not had a bowel movement.? She is ambulating and denies any dizziness.? Has Small amount of rubra lochia. ?She is planning condoms for prevention. Peripartum Data delivery method: Vaginal Laceration description: None complications: none Infant Gender: Female Infant Discharge Plan: Home Status at Discharge Functional status at discharge: independent ambulation Overall status at discharge: patient is progressing back to baseline Time Spent with Patient Time attestation: Total time spent providing and/or coordinating discharge services: Time spent: Less than 30 minutes Discharge Plan Discharge Disposition: Home, Self-Care Date of Admission: 03/15/25 21:51 Attending Provider on Discharge: Yin Banda Primary Care Provider: Moises Scherer Condition: Stable Anticipated Discharge Date/Time: 03/17/25 10:00 Discharge Medications: New acetaminophen 500 mg Tablet 1,000 mg PO Q6H PRNQty: 0 0RF docusate sodium 100 mg Capsule 100 mg PO DAILY Qty: 90 0RF ibuprofen 600 mg Tablet 600 mg PO Q6H PRNQty: 60 0RF Continued prenat.vits,rosalia,[id number] Tablet 1 tab PO QDAY Discharge Orders: Discharge Order (Routine); Ordered 03/17/25 Ordered By: Yin Banda Patient Education: OB Over the Counter Medication Information, OB Vaginal/Breast Feeding Additional Instructions: Discharge instructions were reviewed with the patient including signs and symptoms of infection and home going medications Nothing vaginally for 6 weeks: no tampons or intercourse Off Work or School for 6 weeks 2-week visit: discuss infant feeding concerns, review control options and screen for anxiety/depression. 6-week visit for an annual exam. consultation services are available to all mothers and babies for the first year after delivery.? To make an appointment, please call [phone]. Activity Level: Activity as Tolerated Discharge Diet: Regular Follow Up Appointments: [facility] [Provider Group] Forms: Patient Belongings, [facility] Info Instructions
== END 2025-03-17 09:26 | disposition home or self-care (01) | DRG 560 ==
LOC: OB OUT 21:52 → OB 21:52
PROVIDERS: Admitting Provider Advanced Practice Midwife; PCP Family Medicine; Visit Provider Advanced Practice Midwife
DX: O26.893 Other specified pregnancy related conditions, third trimester (principal); Z67.11 Type A blood, Rh negative; O43.193 Other malformation of placenta, third trimester; H90.5 Unspecified sensorineural hearing loss; Z82.2 Family history of deafness and hearing loss; O99.02 Anemia complicating childbirth; D64.9 Anemia, unspecified; Z60.3 Acculturation difficulty; Z3A.40 40 weeks gestation of pregnancy; Z37.0 Single live birth
CPT/HCPCS: 01967; 36415; 76815; 85025; 86592; 86850; 86870; 86880; 86900; 86901; G0463; A9270; J3010; J7120